=== PATIENT | male | born 1950 | race Caucasian/White ===

== ENCOUNTER 2019-04-26 06:05 | Emergency (ER) | payer MEDICARE ==
[2019-04-26 06:48] LABS: ABSOLUTE BASOPHILS # (AUTO) 0.1 10^3/uL (0.0-0.2); ABSOLUTE EOSINOPHILS # (AUTO) 0.4 10^3/uL (0.0-0.6); ABSOLUTE LYMPHOCYTES (AUTO) 0.9 10^3/uL (0.5-4.7); ABSOLUTE MONOCYTES (AUTO) 0.4 10^3/uL (0.1-1.4); ABSOLUTE NEUT (AUTO) 5.4 10^3/uL (1.7-8.2); BASOPHILS % (AUTO) 1.6 % (0-2); EOSINOPHILS % (AUTO) 5.3 % (0-6); HEMATOCRIT 22.9 % (37.9-51.0); LYMPHOCYTES % (AUTO) 12.7 % (13-45); MEAN CORPUSCULAR HEMOGLOBIN 30.1 pg (27.0-33.4); MEAN CORPUSCULAR HGB CONC 33.3 g/dL (32.0-36.0); MEAN CORPUSCULAR VOLUME 90 fl (80-97); PLATELET COUNT 300 10^3/uL (150-450); RED BLOOD COUNT 2.53 10^6/uL (4.35-5.55); RED CELL DISTRIBUTION WIDTH 14.5 % (11.5-14.0); SEGMENTED NEUTROPHILS % (AUTO) 74.4 % (42-78); TOTAL CELLS COUNTED % (AUTO) 100 %; WHITE BLOOD COUNT 7.2 10^3/uL (4.0-10.5)
[2019-04-26 06:55] LABS: HEMOGLOBIN 7.6 g/dL (13.5-17.0)
[2019-04-26 07:00] LABS: ANION GAP 6 (5-19); BLOOD UREA NITROGEN 49 mg/dL (7-20); CALCIUM 7.8 mg/dL (8.4-10.2); CARBON DIOXIDE 22 mmol/L (22-30); CHLORIDE 115 mmol/L (98-107); GLUCOSE 129 mg/dL (75-110); POTASSIUM 3.9 mmol/L (3.6-5.0); SODIUM 143.3 mmol/L (137-145)
[2019-04-26] MEDS ORDERED: PANTOPRAZOLE SODIUM 40 MG VIAL IV PRN (07:06)
[2019-04-26] MEDS ORDERED: PANTOPRAZOLE SODIUM 40 MG VIAL IV ONE (07:06)
--- NOTE | 2019-04-26 07:07 | ER Document Report ---
ED General - General Chief Complaint: Vomiting Stated Complaint: DIZZINESS/SYNCOPE Time Seen by Provider: 04/26/19 06:18 Notes: 61-year-old male generalized weakness and falling. Is been unsteady on his feet for a couple days and then fell in the bathroom today. No trauma. Has been having coffee-ground emesis for a couple days and dark stool. No loss of consciousness abdominal pain or alcoholism. No liver disease known. Has not seen a doctor in 15 years. TRAVEL OUTSIDE OF THE [place] IN LAST 30 DAYS: No - Related Data Allergies/Adverse Reactions: No Known Allergies Allergy (Unverified 04/26/19 06:39) Past Medical History - Social History Smoking Status: Current Every Day Smoker Family History: None Patient has suicidal ideation: No Patient has homicidal ideation: No Renal/ Medical History: Denies: Hx Peritoneal Dialysis Review of Systems - Review of Systems Notes: REVIEW OF SYSTEMS GEN: Denies fever, chills, weight loss ENT: Denies sore throat, nasal discharge, ear pain EYES: Denies blurry vision, eye pain, discharge CV: Denies chest pain, palpitations, edema RESP: Denies cough, shortness of breath, wheezing GI: Stool coffee-ground emesis MSK: Denies joint pain/swelling, edema, SKIN: Denies rash, skin lesions LYMPH: Denies swollen glands/lymph nodes NEURO: Denies headache, focal weakness or numbness, dizziness PSYCH: Denies depression, suicidal or homicidal ideation PHYSICAL EXAMINATION General: No no acute distress, well-nourished Head: Atraumatic, normocephalic ENT: Mouth normal, oropharynx moist, no exudates or tonsillar enlargement Eyes: Conjunctiva normal, pupils equal, lids normal Neck: No JVD, supple, no guarding CVS: Normal rate, regular rhythm, no murmurs Resp: No resp distress, equal and normal breath sounds bilaterally GI: Nondistended, soft, green emesis on clothing. Ext: No deformities, no edema, normal range of motion in upper and lower ext Back: No CVA or midline TTP Skin: No rash, warm Lymphatic: No lymphadeopathy noted Neuro: Awake, alert. Face symmetric. GCS 15. Physical Exam - Vital signs Vitals: Temp Pulse Resp BP Pulse Ox 98.0 F 84 15 148/63 H 98 04/26/19 06:38 04/26/19 06:38 04/26/19 06:38 04/26/19 06:38 04/26/19 06:38 Course - Re-evaluation Re-evalutation: 04/26/19 10:07 Patient presents with fall from standing. Looks ill. Coffee-ground emesis evident on patient's exterior skin and clothing. Concern for upper GI bleed. The patient was normotensive throughout the ED stay. No further episodes of melena or hematemesis. Hemoglobin is 7-1/2does not quite meet transfusion criteria and is stable. Will repeat in 4 hours. Ordered Protonix bolus and drip. No evidence of liver disease on labs and patient reports no alcoholism so did not give octreotide. Discussed with both Phoebe and Valentin Gutierrez and ended up excepting at [facility] Dr. Gooden, for intermediate level care. Agrees with plan. - Vital Signs Vital signs: Temp Pulse Resp BP Pulse Ox 98.0 F 84 15 148/63 H 98 04/26/19 06:38 04/26/19 06:38 04/26/19 06:38 04/26/19 06:38 04/26/19 06:38 - Laboratory Result Diagrams: 04/26/19 06:10 04/26/19 06:10 Laboratory results interpreted by me: 04/26/19 04/26/19 04/26/19 06:10 06:10 06:10 RBC 2.53 L Hgb 7.6 L Hct 22.9 L RDW 14.5 H Lymphocytes % 12.7 L Chloride 115 H BUN 49 H Creatinine 1.58 H Est GFR ( Amer) 53 L Est GFR (Non-Af Amer) 44 L Glucose 129 H Calcium 7.8 L ALT 19 L Total Protein 5.4 L Albumin 2.8 L Discharge - Discharge Clinical Impression: Upper GI bleed Condition: Fair Disposition: [facility]
[2019-04-26 07:25] LABS: INTERNATIONAL RATION (INR) 0.94
[2019-04-26 07:30] LABS: ALANINE AMINOTRANSFERASE 19 U/L (21-72); ALBUMIN 2.8 g/dL (3.5-5.0); ALKALINE PHOSPHATASE 44 U/L (38-126); ASPARTATE AMINO TRANSFERASE 31 U/L (17-59); BILIRUBIN,DIRECT 0.3 mg/dL (0.0-0.4); BILIRUBIN,TOTAL 0.4 mg/dL (0.2-1.3); TOTAL PROTEIN 5.4 g/dL (6.3-8.2)
--- NOTE | 2019-04-26 10:22 | EKG REPORT ---
SEVERITY:- ABNORMAL ECG - SINUS RHYTHM LEFT VENTRICULAR HYPERTROPHY BORDERLINE T ABNORMALITIES, INFERIOR LEADS : Confirmed by: Christiane Roldan MD 26-Apr-2019 10:21:10
[2019-04-26 10:56] LABS: ABSOLUTE BASOPHILS # (AUTO) 0.1 10^3/uL (0.0-0.2); ABSOLUTE LYMPHOCYTES (AUTO) 0.7 10^3/uL (0.5-4.7); ABSOLUTE MONOCYTES (AUTO) 0.4 10^3/uL (0.1-1.4); ABSOLUTE NEUT (AUTO) 4.9 10^3/uL (1.7-8.2); BASOPHILS % (AUTO) 1.4 % (0-2); EOSINOPHILS % (AUTO) 0.4 % (0-6); HEMATOCRIT 22.3 % (37.9-51.0); LYMPHOCYTES % (AUTO) 12.3 % (13-45); MEAN CORPUSCULAR HGB CONC 33.5 g/dL (32.0-36.0); MEAN CORPUSCULAR VOLUME 90 fl (80-97); MONOCYTES % (AUTO) 5.7 % (3-13); PLATELET COUNT 274 10^3/uL (150-450); RED BLOOD COUNT 2.49 10^6/uL (4.35-5.55); RED CELL DISTRIBUTION WIDTH 14.4 % (11.5-14.0); SEGMENTED NEUTROPHILS % (AUTO) 80.2 % (42-78); TOTAL CELLS COUNTED % (AUTO) 100 %; WHITE BLOOD COUNT 6.1 10^3/uL (4.0-10.5)
[2019-04-26 11:17] LABS: HEMOGLOBIN 7.5 g/dL (13.5-17.0)
[2019-04-26 20:51] LABS: ABSOLUTE BASOPHILS # (AUTO) 0.1 10^3/uL (0.0-0.2); ABSOLUTE EOSINOPHILS # (AUTO) 0.1 10^3/uL (0.0-0.6); ABSOLUTE LYMPHOCYTES (AUTO) 1.2 10^3/uL (0.5-4.7); ABSOLUTE MONOCYTES (AUTO) 0.5 10^3/uL (0.1-1.4); ABSOLUTE NEUT (AUTO) 3.3 10^3/uL (1.7-8.2); BASOPHILS % (AUTO) 1.4 % (0-2); EOSINOPHILS % (AUTO) 2.7 % (0-6); HEMATOCRIT 20.5 % (37.9-51.0); LYMPHOCYTES % (AUTO) 22.8 % (13-45); MEAN CORPUSCULAR HEMOGLOBIN 30.8 pg (27.0-33.4); MEAN CORPUSCULAR HGB CONC 34.2 g/dL (32.0-36.0); MEAN CORPUSCULAR VOLUME 90 fl (80-97); MONOCYTES % (AUTO) 9.5 % (3-13); PLATELET COUNT 269 10^3/uL (150-450); RED BLOOD COUNT 2.28 10^6/uL (4.35-5.55); RED CELL DISTRIBUTION WIDTH 14.5 % (11.5-14.0); SEGMENTED NEUTROPHILS % (AUTO) 63.6 % (42-78); TOTAL CELLS COUNTED % (AUTO) 100 %; WHITE BLOOD COUNT 5.1 10^3/uL (4.0-10.5)
[2019-04-26] MEDS ORDERED: NORMAL SALINE 250 ML IV PRN ×2 (21:05)
[2019-04-27 07:14] LABS: ABSOLUTE BASOPHILS # (AUTO) 0.1 10^3/uL (0.0-0.2); ABSOLUTE EOSINOPHILS # (AUTO) 0.2 10^3/uL (0.0-0.6); ABSOLUTE LYMPHOCYTES (AUTO) 0.6 10^3/uL (0.5-4.7); ABSOLUTE MONOCYTES (AUTO) 0.3 10^3/uL (0.1-1.4); ABSOLUTE NEUT (AUTO) 3.2 10^3/uL (1.7-8.2); BASOPHILS % (AUTO) 1.3 % (0-2); EOSINOPHILS % (AUTO) 4.9 % (0-6); HEMATOCRIT 23.5 % (37.9-51.0); LYMPHOCYTES % (AUTO) 14.4 % (13-45); MEAN CORPUSCULAR HEMOGLOBIN 28.6 pg (27.0-33.4); MEAN CORPUSCULAR HGB CONC 33.5 g/dL (32.0-36.0); MONOCYTES % (AUTO) 7.1 % (3-13); PLATELET COUNT 199 10^3/uL (150-450); RED BLOOD COUNT 2.76 10^6/uL (4.35-5.55); RED CELL DISTRIBUTION WIDTH 17.8 % (11.5-14.0); SEGMENTED NEUTROPHILS % (AUTO) 72.3 % (42-78); TOTAL CELLS COUNTED % (AUTO) 100 %; WHITE BLOOD COUNT 4.4 10^3/uL (4.0-10.5)
[2019-04-27 07:19] LABS: MEAN CORPUSCULAR VOLUME 85 fl (80-97)
[2019-04-27 07:21] LABS: HEMOGLOBIN 7.9 g/dL (13.5-17.0)
--- NOTE | 2019-04-27 09:25 | ER Document Report ---
Doctor's Note Notes: 04/27/19 09:24 Patient presents with fall from standing. Looks ill. Coffee-ground emesis evident on patient's exterior skin and clothing. Concern for upper GI bleed. The patient was normotensive throughout the ED stay. No further episodes of melena or hematemesis. Hemoglobin is 7-1/2does not quite meet transfusion c riteria and is stable. Will repeat in 4 hours. Ordered Protonix bolus and drip. No evidence of liver disease on labs and patient reports no alcoholism so did not give octreotide. Discussed with both [facility] and Valentin Gutierrez and ended up excepting at [facility] Dr. Gooden, for intermediate level care. Agrees with plan. As the rounding physician this AM, I assessed the patient's labs, vitals, and records. No concerning findings this morning. Patient denies any acute complaints. Patient is awaiting for bed at [facility]. Repeat hemoglobin today 7.9. PHYSICAL EXAMINATION: GENERAL: Well-appearing, well-nourished and in no acute distress. HEAD: Atraumatic, normocephalic. EYES: Pupils equal round extraocular movements intact, conjunctiva are normal. ENT: Nares patent NECK: Normal range of motion LUNGS: No respiratory distress Musculoskeletal: Normal range of motion NEUROLOGICAL: Normal speech, normal gait. PSYCH: Normal mood, normal affect. SKIN: Warm, Dry, normal turgor, no rashes or lesions noted. 04/27/19 17:22 Still awaiting bed placement at [facility].
[2019-04-27 14:36] LABS: ABSOLUTE BASOPHILS # (AUTO) 0.1 10^3/uL (0.0-0.2); ABSOLUTE EOSINOPHILS # (AUTO) 0.3 10^3/uL (0.0-0.6); ABSOLUTE LYMPHOCYTES (AUTO) 0.8 10^3/uL (0.5-4.7); ABSOLUTE MONOCYTES (AUTO) 0.5 10^3/uL (0.1-1.4); ABSOLUTE NEUT (AUTO) 4.1 10^3/uL (1.7-8.2); BASOPHILS % (AUTO) 1.4 % (0-2); EOSINOPHILS % (AUTO) 4.7 % (0-6); HEMATOCRIT 27.3 % (37.9-51.0); HEMOGLOBIN 9.2 g/dL (13.5-17.0); LYMPHOCYTES % (AUTO) 13.8 % (13-45); MEAN CORPUSCULAR HEMOGLOBIN 28.7 pg (27.0-33.4); MEAN CORPUSCULAR HGB CONC 33.9 g/dL (32.0-36.0); MEAN CORPUSCULAR VOLUME 85 fl (80-97); PLATELET COUNT 241 10^3/uL (150-450); RED BLOOD COUNT 3.22 10^6/uL (4.35-5.55); RED CELL DISTRIBUTION WIDTH 17.8 % (11.5-14.0); SEGMENTED NEUTROPHILS % (AUTO) 72.1 % (42-78); TOTAL CELLS COUNTED % (AUTO) 100 %; WHITE BLOOD COUNT 5.7 10^3/uL (4.0-10.5)
[2019-04-27 23:19] VITALS: BP 145/65
== END 2019-04-28 00:07 | disposition short-term general hospital (02) ==
LOC: ER 06:05
DX: K92.2 Gastrointestinal hemorrhage, unspecified (principal); R11.10 Vomiting, unspecified; R42 Dizziness and giddiness; R55 Syncope and collapse; W19.XXXA Unspecified fall, initial encounter; F17.200 Nicotine dependence, unspecified, uncomplicated; Z91.81 History of falling
CPT/HCPCS: 93005; 96376; 99285; 96361; 96365; 96366; 86900; 86901; 36415; 36430; 86850; 85025; 85610; 80076; 80048; 86920; 93010; P9016; C9113; J7050; S0164

== ENCOUNTER 2019-06-18 09:15 | Day surgery (SDC) | payer MEDICARE ==
[~2019-06-18 09:15] MED LIST: PROPOFOL INJ 200 MG/20 ML VIAL IV ONE
[2019-06-18] MEDS ORDERED: LIDOCAINE 2% INJ-PF (100 MG/5 ML) SYRINGE ONE (10:31)
[2019-06-18] MEDS ORDERED: PROPOFOL INJ 200 MG/20 ML VIAL IV ONE ×2 (12:13→12:50)
[2019-06-18 12:53] VITALS: BP 137/91
--- NOTE | 2019-06-18 14:22 | Operative Report ---
Operative Report DATE OF SURGERY: 06/18/19 Operative Report: The risks, benefits and alternatives of the procedure including the risk of bleeding, perforation requiring surgery have been explained to the patient in detail and informed consent has been obtained. Patient is taken back to the endoscopy suite and placed in the left, lateral decubital position. Timeout was called. Propofol medication is administered. Rectal examination is done which did not reveal any masses, tears or fissures. An Olympus videoscope was introduced into the patient's rectum. The scope was then carefully advanced all the way to the cecum. The cecum was identified by the usual anatomical landmarks including the ileocecal valve as well as the appendiceal office. Photodocumentation is obtained. The scope was then sequentially pulled back via the various segments of the colon including the ascending colon, hepatic flexure, transverse colon, splenic flexure, descending colon finding to the rectosigmoid portions of the colon. Retroflexion maneuver is performed. The risks benefits and alternatives of the procedure explained to the patient in detail and informed consent is obtained.A GIF Olympus video scope was inserted into the patient's mouth and hypopharynx, the esophagus is identified intubated and insufflated, the scope was then advanced through the esophagus stomach and duodenum ,retroflexion maneuver is done, the esophagus stomach and first and second portions of the duodenum examined. PREOPERATIVE DIAGNOSIS: Colorectal cancer screening. Follow-up on gastric ulcer POSTOPERATIVE DIAGNOSIS: Long redundant left side of the colon. Incomplete colonoscopy it is only performed to part of the transverse colon. There is a polyp in the area of the splenic flexure unable to be snared and removed. The area was tattooed with submucosal Sabrina ink injection for potential location during surgery. Internal hemorrhoids. Gastritis status post biopsy. Healed gastric ulcer with no further bleeding OPERATION: Colonoscopy with submucosal injection. EGD with biopsy SURGEON: ALONSO LEON ANESTHESIA: LMAC TISSUE REMOVED OR ALTERED: As noted above. COMPLICATIONS: None. ESTIMATED BLOOD LOSS: None. INTRAOPERATIVE FINDINGS: As noted above. PROCEDURE: Patient tolerated the procedure well. No immediate postprocedure complications are noted. Patient is discharged in good condition. Discharge date 06/18/2019. Discharge diet: Regular. Discharge activity: Regular. 2 to 3-week follow-up to discuss findings. Patient is instructed to call the office or proceed to the emergency room should there be any further problems or questions. I will have to make a referral to surgery for potential surgical removal of the splenic flexure polyp which was unable to be removed during optical colonoscopy. The area is tattooed with Sabrina ink injection. One surgical consultation has been requested and potential surgery planned if needed then surveillance colonoscopy can be done 1 year after surgical resection
== END 2019-06-18 11:48 | disposition home or self-care (01) ==
LOC: END 09:15
PROVIDERS: ATTEND Internal Medicine Gastroenterology
DX: Z12.11 Encounter for screening for malignant neoplasm of colon (principal); D12.6 Benign neoplasm of colon, unspecified; K64.8 Other hemorrhoids; Q43.8 Other specified congenital malformations of intestine; K29.50 Unspecified chronic gastritis without bleeding; Z09 Encounter for follow-up examination after completed treatment for conditions other than malignant neoplasm; Z87.11 Personal history of peptic ulcer disease; Z13.89 Encounter for screening for other disorder; Z79.899 Other long term (current) drug therapy
CPT/HCPCS: 43239; 45381; 88342 ×2; 88305 ×2; 00813; J2704 ×2; 813; J2001

== ENCOUNTER → 2019-07-10 | Outpatient (CLI) | payer MEDICARE ==
[2019-07-10 11:05] LABS: ABSOLUTE BASOPHILS # (AUTO) 0.1 10^3/uL (0.0-0.2); ABSOLUTE EOSINOPHILS # (AUTO) 0.2 10^3/uL (0.0-0.6); ABSOLUTE MONOCYTES (AUTO) 0.6 10^3/uL (0.1-1.4); ABSOLUTE NEUT (AUTO) 3.5 10^3/uL (1.7-8.2); BASOPHILS % (AUTO) 1.8 % (0-2); EOSINOPHILS % (AUTO) 4.3 % (0-6); HEMATOCRIT 38.4 % (37.9-51.0); HEMOGLOBIN 12.5 g/dL (13.5-17.0); LYMPHOCYTES % (AUTO) 17.8 % (13-45); MEAN CORPUSCULAR HEMOGLOBIN 27.2 pg (27.0-33.4); MEAN CORPUSCULAR HGB CONC 32.6 g/dL (32.0-36.0); MEAN CORPUSCULAR VOLUME 83 fl (80-97); MONOCYTES % (AUTO) 10.7 % (3-13); PLATELET COUNT 300 10^3/uL (150-450); RED CELL DISTRIBUTION WIDTH 19.8 % (11.5-14.0); SEGMENTED NEUTROPHILS % (AUTO) 65.4 % (42-78); TOTAL CELLS COUNTED % (AUTO) 100 %; WHITE BLOOD COUNT 5.4 10^3/uL (4.0-10.5)
[2019-07-10 11:25] LABS: ANION GAP 13 (5-19); BLOOD UREA NITROGEN 23 mg/dL (7-20); CALCIUM 10.2 mg/dL (8.4-10.2); CARBON DIOXIDE 25 mmol/L (22-30); CHLORIDE 102 mmol/L (98-107); GLUCOSE 102 mg/dL (75-110); POTASSIUM 4.9 mmol/L (3.6-5.0)
== END ==
LOC: OD 10:02
PROVIDERS: ATTEND Physician Assistant Surgical
DX: D64.9 Anemia, unspecified (principal); Z09 Encounter for follow-up examination after completed treatment for conditions other than malignant neoplasm; Z87.11 Personal history of peptic ulcer disease
CPT/HCPCS: 36415; 80048; 85025

== ENCOUNTER → 2019-07-17 | Outpatient (CLI) | payer MEDICARE ==
--- NOTE | 2019-07-17 12:46 | RADIOLOGY REPORT (SQ) ---
EXAM DESCRIPTION: BARIUM ENEMA W/AIR COMPLETED DATE/TIME: 07/17/2019 11:30 am REASON FOR STUDY: D64.9 ANEMIA, UNSPECIFIED D64.9 ANEMIA, UNSPECIFIED COMPARISON: None. FLUOROSCOPY TIME: 6.9 minutes 24 images saved to PACS. TECHNIQUE: Following retrograde filling of the colon with barium and air, fluoroscopic spot and over head imaging of the colon was obtained and saved to PACS. LIMITATIONS: None. FINDINGS: LOG GRADER KUB: Normal abdominal film with adequate bowel prep. Gallstones seen in right upper quadrant. CECUM: Mobile cecum with normal mucosa, without intraluminal filling defects, intrinsic or extrinsic masses, or lesions. ASCENDING COLON: Normal mucosa without intraluminal filling defects, intrinsic or extrinsic masses, o r lesions. TRANSVERSE COLON: Normal mucosa without intraluminal filling defects, intrinsic or extrinsic masses, or lesions. DESCENDING COLON: There is a large left-sided inguinal hernia which contains a portion of the descend ing and sigmoid colon. Normal mucosa without intraluminal filling defects, intrinsic or extrinsic ma sses, or lesions. SIGMOID COLON: Normal mucosa without intraluminal filling defects, intrinsic or extrinsic masses, or lesions. RECTUM: Normal mucosa without intraluminal filling defects, intrinsic or extrinsic masses, or lesions . POST EVAC: Near complete evacuation of barium with no additional findings. OTHER: No other significant finding. IMPRESSION: LARGE LEFT INGUINAL HERNIA CONTAINING A PORTION OF DESCENDING AND SIGMOID COLON, WITHOUT OBSTRUCTION. OTHERWISE NORMAL AIR CONTRAST BARIUM ENEMA. COMMENT: NONE Quality ID 145: Final reports for procedures using fluoroscopy that document radiation exposure jayy adnrea, or exposure time and number of fluorographic images (if radiation exposure indices are not avail able) TECHNICAL DOCUMENTATION: JOB ID: [id number] [employer]- All Rights Reserved Reading location - IP/workstation name: [email or web address] [id number]
== END ==
LOC: RAD 09:27
PROVIDERS: ATTEND Surgery
DX: D64.9 Anemia, unspecified (principal); Z09 Encounter for follow-up examination after completed treatment for conditions other than malignant neoplasm; Z87.11 Personal history of peptic ulcer disease; K40.90 Unilateral inguinal hernia, without obstruction or gangrene, not specified as recurrent
CPT/HCPCS: 74280

== ENCOUNTER 2019-08-01 09:34 | Day surgery (SDC) | payer MEDICARE ==
[2019-07-30 12:31] LABS: HEMATOCRIT 37.8 % (37.9-51.0); HEMOGLOBIN 12.6 g/dL (13.5-17.0); MEAN CORPUSCULAR HEMOGLOBIN 27.5 pg (27.0-33.4); MEAN CORPUSCULAR HGB CONC 33.2 g/dL (32.0-36.0); MEAN CORPUSCULAR VOLUME 83 fl (80-97); PLATELET COUNT 252 10^3/uL (150-450); RED BLOOD COUNT 4.56 10^6/uL (4.35-5.55); RED CELL DISTRIBUTION WIDTH 19.2 % (11.5-14.0); WHITE BLOOD COUNT 4.8 10^3/uL (4.0-10.5)
[2019-07-30 12:54] LABS: ANION GAP 13 (5-19); BLOOD UREA NITROGEN 19 mg/dL (7-20); CARBON DIOXIDE 25 mmol/L (22-30); CHLORIDE 103 mmol/L (98-107); GLUCOSE 102 mg/dL (75-110); POTASSIUM 4.6 mmol/L (3.6-5.0)
--- NOTE | 2019-07-30 22:31 | EKG REPORT ---
SEVERITY:- BORDERLINE ECG - SINUS RHYTHM BORDERLINE T ABNORMALITIES, INFERIOR LEADS : Confirmed by: Erik Uriostegui 30-Jul-2019 22:31:17
[~2019-08-01 09:34] MED LIST changes: +ACETAMINOPHEN 325 MG TABLET PO PRN; +LACTATED RINGERS 1000 ML IV PRN; +LIDOCAINE 0.5% INJ-PF (5 MG/ML) 50 ML SDV SUBCUT PRN; -PROPOFOL INJ 200 MG/20 ML VIAL IV ONE; +RINGERS SOLUTION,LACTATED 1,000 ML IV PRN
[2019-08-01] MEDS ORDERED: PROPOFOL INJ 200 MG/20 ML VIAL IV ONE (10:37)
[2019-08-01] MEDS ORDERED: FENTANYL CITRATE INJ/PF 100 MCG/2 ML AMPUL ONE (12:01)
--- NOTE | 2019-08-01 13:20 | Discharge Summary ---
Discharge Summary (SDC) - Discharge Final Diagnosis: Multiple polyps and left colon mass Date of Surgery: 08/01/19 Discharge Date: 08/01/19 Condition: Good Treatment or Instructions: [facility] [place] [id number] POST ENDOSCOPY DISCHARGE INSTRUCTIONS 1. Diet: Start clear liquids that a regular diet as tolerated. 2. Resume all preoperative medications. All oral anticoagulants and aspirins can be resumed 24 hours after procedure. 3. If a polypectomy was performed some bleeding per rectum may occur. This should stop within 3 days. If not, please contact the office. 4. If you had a colonoscopy you may experience some bloating and delayed return of normal bowel function for several days, your regular bowel movement pattern should resume within a week. 5. Please contact [facility] at to make an appointment with Dr. Candelaria for 1 to 3 weeks following procedure. 6. If you have any questions or concerns regarding your care,treatment plan or follow up, please contact our office. Referrals: YUE JIMENEZ PA-C [Primary Care Provider] - Discharge Activity: Activity As Tolerated Report the Following to Your Physician Immediately: Nausea, Vomiting, Increase in Pain, Fever over 101 Degrees, Unusual Bleeding, Drainage-Foul Smelling
--- NOTE | 2019-08-01 13:26 | Operative Report ---
Operative Report DATE OF SURGERY: 08/01/19 PREOPERATIVE DIAGNOSIS: 1. Left colon sessile mass, inked. 2. Redundant colo n. 3. Left inguinal hernia with incarceration POSTOPERATIVE DIAGNOSIS: Same with. 1. Left colon mass, sessile. 2. Multiple left colon polyps OPERATION: 1. Colonoscopy to 140 cm, likely transverse colon. 2. Hot snare piecemeal removal of left colon sessile mass with estimated retention. 3. Hot snare polypectomy of 3 small polyps left colon SURGEON: RUTHY TURNER 1ST CHECK AND TRANSFER BEADER: OSKAR RANDOLPH ANESTHESIA: LMAC TISSUE REMOVED OR ALTERED: Left colon mass; multiple polyps COMPLICATIONS: None INTRAOPERATIVE FINDINGS: See below PROCEDURE: Patient was taken the preop holding her to the main operating room where LMAC anesthesia was induced. Placed in left lateral decubitus position. Surgical plan and surgical timeout were conducted. Of note the patient had a known left inguinal hernia with incarceration. The flexible adult colonoscope was advanced to the anal rectal canal all the way to its maximum point of insertion, externally 140 cm. The light at the tip of scope was in the right upper quadrant. Because of the patient's incarcerated left inguinal hernia, with locked sigmoid colon, the colonoscopy was extremely difficult. In fact we had Dr. Randolph come in to the procedure, and assist with a manual decompression of the sigmoid colon, However this was only partially successful. Upon withdrawal the scope, at approximately 100 cm was the ink spot. Initially we did not see the target the lesion. The scope was withdrawn completely back into the anal canal, and the left inguinal hernia reduced manually by Dr. Randolph. Dr. Turner then advanced the colonoscope back up all the way to the ink spot which is approximately 90 cm from the anal verge. Adjacent to the ink spot was a sessile approximately 1/2 cm slightly variegated polyp. It was photographed. Using the hexagonal snare, [employer] by [email or web address], we removed the polyp with 2 purchases, using heat, and medium strength. Both fragments were retained and sent to pathology as a left colon mass. The polypectomy site was inspected and the submucosa was visible. There is no bleeding. We felt that the polypectomy was successful and complete. There were 3 additional polypectomies performed with the loop hot snare device on medium heat strength. These were all in the left colon, small, pedunculated, approximately 3 mm each. They were submitted as specimens a and C respectively. Polypectomy sites were well cauterized and stable. The Remainder of the rectosigmoid colon and anorectal canal were free of pathology. The scope was complete return of the patient's anus. He tolerated the procedure well.
[2019-08-01 15:02] VITALS: BP 157/87
== END 2019-08-01 14:50 | disposition home or self-care (01) ==
LOC: OROUT 09:34
PROVIDERS: ATTEND Surgery
DX: K63.89 Other specified diseases of intestine (principal); D12.6 Benign neoplasm of colon, unspecified; D12.5 Benign neoplasm of sigmoid colon; K40.30 Unilateral inguinal hernia, with obstruction, without gangrene, not specified as recurrent; D64.9 Anemia, unspecified; I10 Essential (primary) hypertension; K21.9 Gastro-esophageal reflux disease without esophagitis; Z87.11 Personal history of peptic ulcer disease; Z79.899 Other long term (current) drug therapy
CPT/HCPCS: 45385; 93005; 36415; 85027; 80048; 88305 ×2; 93010; J3010; J2704; 811

== ENCOUNTER 2019-08-22 12:46 | Day surgery (SDC) | payer MEDICARE ==
[2019-08-20 10:12] LABS: HEMATOCRIT 39.2 % (37.9-51.0); HEMOGLOBIN 12.8 g/dL (13.5-17.0); MEAN CORPUSCULAR HEMOGLOBIN 26.9 pg (27.0-33.4); MEAN CORPUSCULAR HGB CONC 32.6 g/dL (32.0-36.0); MEAN CORPUSCULAR VOLUME 83 fl (80-97); PLATELET COUNT 291 10^3/uL (150-450); RED BLOOD COUNT 4.75 10^6/uL (4.35-5.55); WHITE BLOOD COUNT 3.9 10^3/uL (4.0-10.5)
[~2019-08-22 12:46] MED LIST changes: +CEFAZOLIN SODIUM 1 GM in DEXTROSE 5%-WATER 50 ML IV PRN; +DEXAMETHASONE SOD PHOSPHATE INJ 4 MG/1 ML VIAL ONE; +ONDANSETRON HCL INJ/PF 4 MG/2 ML SDV ONE; -RINGERS SOLUTION,LACTATED 1,000 ML IV PRN; +SUCCINYLCHOLINE CHLORIDE INJ 200 MG/10 ML VIAL ONE
[2019-08-22] MEDS ORDERED: MIDAZOLAM 2 MG/2 ML INJ ONE (15:46)
[2019-08-22] MEDS ORDERED: PROPOFOL INJ 200 MG/20 ML VIAL IV ONE (15:46)
[2019-08-22] MEDS ORDERED: FENTANYL CITRATE INJ/PF 250 MCG/5 ML AMPULE ONE (15:46)
[2019-08-22] MEDS ORDERED: HYDROMORPHONE HCL INJ/PF 2 MG/ML AMPULE ONE (15:46)
[2019-08-22] MEDS ORDERED: BUPIVACAINE HCL 0.25% /EPINEPHRINE INJ/PF 30 ML SDV INFIL ONE ×2 (16:18)
[2019-08-22] MEDS ORDERED: MEPERIDINE HCL/PF INJ 25 MG/1 ML DISP.SYRIN IV PRN (16:38)
[2019-08-22] MEDS ORDERED: FENTANYL CITRATE INJ/PF 100 MCG/2 ML AMPUL IV PRN ×3 (16:38)
[2019-08-22] MEDS ORDERED: PROMETHAZINE HCL INJ 25 MG/1 ML VIAL IV PRN (16:38)
[2019-08-22] MEDS ORDERED: MORPHINE SULFATE 10 MG/ML INJ IV PRN (16:38)
[2019-08-22] MEDS ORDERED: DIPHENHYDRAMINE HCL 50 MG/ML VIAL IV PRN (16:38)
[2019-08-22] MEDS ORDERED: BUPIVACAINE INJ/PF LIPOSOME/PF 266 MG/20 ML SDV ONE (17:17)
[2019-08-22] MEDS ORDERED: BUPIVACAINE INJ/PF LIPOSOME/PF 266 MG/20 ML SDV INJ ONE (17:19)
--- NOTE | 2019-08-22 17:52 | Discharge Summary ---
Discharge Summary (SDC) - Discharge Final Diagnosis: Left inguinal hernia with incarceration Date of Surgery: 08/22/19 Discharge Date: 08/22/19 Condition: Good Treatment or Instructions: No heavy lifting; may shower; RTC OSC in 2 weeks; resume preop meds diet. Referrals: YUE JIMENEZ PA-C [Primary Care Provider] - Discharge Diet: As Tolerated Discharge Activity: Activity As Tolerated Home Care Assistance: None Needed Report the Following to Your Physician Immediately: Shortness of Breath, Increase in Pain, Fever over 101 Degrees
--- NOTE | 2019-08-22 18:09 | Operative Report ---
Operative Report DATE OF SURGERY: 08/22/19 PREOPERATIVE DIAGNOSIS: Incarcerated Left inguinal hernia POSTOPERATIVE DIAGNOSIS: same OPERATION: Left Inguinal Open repair with [employer] Mesh, Large SURGEON: RUTHY TURNER 1ST RADIOLOGICAL ENGINEER: DILIA SULLIVAN ANESTHESIA: GA TISSUE REMOVED OR ALTERED: hernia sac; cord lipoma COMPLICATIONS: none ESTIMATED BLOOD LOSS: scant INTRAOPERATIVE FINDINGS: see below PROCEDURE: Patient was in the preop holding area with the left inguinal area was marked. He was then taken to the main operating room where he underwent general anesthesia. Arms abducted, abdomen and pelvis exposed, lower abdomen, genitalia prepped draped sterile fashion Surgical plan surgical timeout were conducted. The skin was anesthetized with quarter percent bupivacaine. A standard left inguinal herniorrhaphy incision was made over the left inguinal canal. Subcutaneous tissue was divided electrocautery. Very large hernia sac was identified and we began dissecting it from surrounding structures. This is performed in a methodical fashion using tension countertraction and electrocautery. We opened up the external oblique aponeurosis along the direction of its fibers laterally. We now the large inguinal hernia sac from the vas deferens and cord structures, and a large lipoma of the cord was identified and from all other structures. The hernia sac was opened and confirmed to communicate with the peritoneal cavity. There was no evidence of incarcerated bowel. We amputated the hernia sac at 2 levels, and oversewed at its base with a 2 0 pursestring Vicryl suture. The pedicle to the lipoma emanating from the retroperitoneal tissue was divided between clamps and Vicryl ties and amputated. The genitofemoral nerve was visualized of the dissection and preserved. We had a [place] loop drain around the cord structures. The floor the inguinal canal medially was intact. There was no evidence of direct hernia. The left hemiscrotum was otherwise unremarkable although we did not deliver the left testicle into the field. I opened up the retroperitoneal space just lateral to the retracted indirect hernia sac stump. This space was opened up bluntly so as to accommodate the inner component of the polyp with mesh. We Brought onto the field a non- , large [employer] polypropylene mesh, and deployed the inner component into the retroperitoneal space, splitting it open may flatten configuration to a more oval configuration. We now cleaned up the patient in the floor the inguinal canal and sewed the outer component of the mesh to Basilia's ligament conjoined tendon and the lacunar ligament all with multiple interrupted 0 PDS sutures. The mesh was trimmed with an upside down view of the 5 o'clock position to accommodate the cord structures and the new internal inguinal ring was created without tension. We were satisfied the mesh was in good position, it was secured. The external oblique aponeurosis was closed with 2-0 Vicryl sutures Tolu's fascia closed with 3-0 Vicryl and skin approximated with 3-0 Vicryl and Dermabond glue. 20 cc of full-strength Exparel was injected in the subcutaneous tissues. The patient tolerated the procedure well, was extubated, and taken to recovery in stable condition The physician portfolio assistant, Ms. Nassar, provided assistance during this case by: Assisting with retracting tissue, instillation of local anesthesia and closure of skin incisions.
[2019-08-22 19:51] VITALS: BP 155/88
== END 2019-08-22 19:35 | disposition home or self-care (01) ==
LOC: OROUT 12:46
PROVIDERS: ATTEND Surgery
DX: K40.30 Unilateral inguinal hernia, with obstruction, without gangrene, not specified as recurrent (principal); D17.6 Benign lipomatous neoplasm of spermatic cord; I10 Essential (primary) hypertension; E78.00 Pure hypercholesterolemia, unspecified; Z79.899 Other long term (current) drug therapy
CPT/HCPCS: 36415; 85027; 88302 ×2; 88304 ×2; 00830; 49507; C1781; J2250; J3490; J0690; J1100; J3010; J0330; J2405; J7060; J2704; C9290; 830; J1170